=== PATIENT | male | born 1990 | race Caucasian/White ===

== ENCOUNTER 2019-12-28 11:02 | Emergency (ER) | payer OTHER ==
--- NOTE | 2019-12-28 11:40 | ER Document Report ---
ED Medical Screen (RME) - General Chief Complaint: Chest Pain Stated Complaint: CHEST PAIN Time Seen by Provider: 12/28/19 11:36 Notes: Patient presents with a 2-3 history of chest tightness and right shoulder numbness. Patient denies any nausea vomiting or cough at this time. Patient denies any shortness of breath. Patient does report a previous history of gout. Patient reports only discomfort to the chest although denies pain at this time. I have greeted and performed a rapid initial assessment of this patient. A comprehensive ED assessment and evaluation of the patient, analysis of test results and completion of the medical decision making process will be conducted by additional ED providers. - Related Data Allergies/Adverse Reactions: No Known Allergies Allergy (Verified 12/28/19 11:35) Home Medications: fish oil Past Medical History - Social History Frequency of alcohol use: None Drug Abuse: None Physical Exam - Vital signs Vitals: Temp Pulse Resp BP Pulse Ox 98.4 F 53 L 18 143/74 H 99 12/28/19 11:23 12/28/19 11:23 12/28/19 11:23 12/28/19 11:23 12/28/19 11:23 - Cardiovascular Rhythm: Bradycardia Heart sounds: S1 appreciated, S2 appreciated Course - Vital Signs Vital signs: Temp Pulse Resp BP Pulse Ox 98.4 F 53 L 18 143/74 H 99 12/28/19 11:23 12/28/19 11:23 12/28/19 11:23 12/28/19 11:23 12/28/19 11:23
[2019-12-28 12:09] LABS: ABSOLUTE LYMPHOCYTES (AUTO) 2.2 10^3/uL (0.5-4.7); ABSOLUTE MONOCYTES (AUTO) 0.3 10^3/uL (0.1-1.4); ABSOLUTE NEUT (AUTO) 1.7 10^3/uL (1.7-8.2); BASOPHILS % (AUTO) 0.4 % (0-2); EOSINOPHILS % (AUTO) 1.1 % (0-6); HEMATOCRIT 42.7 % (37.9-51.0); HEMOGLOBIN 14.6 g/dL (13.5-17.0); LYMPHOCYTES % (AUTO) 51.6 % (13-45); MEAN CORPUSCULAR HEMOGLOBIN 27.4 pg (27.0-33.4); MEAN CORPUSCULAR HGB CONC 34.2 g/dL (32.0-36.0); MEAN CORPUSCULAR VOLUME 80 fl (80-97); PLATELET COUNT 306 10^3/uL (150-450); RED BLOOD COUNT 5.33 10^6/uL (4.35-5.55); RED CELL DISTRIBUTION WIDTH 12.9 % (11.5-14.0); SEGMENTED NEUTROPHILS % (AUTO) 38.9 % (42-78); TOTAL CELLS COUNTED % (AUTO) 100 %; WHITE BLOOD COUNT 4.3 10^3/uL (4.0-10.5)
--- NOTE | 2019-12-28 12:10 | RADIOLOGY REPORT (SQ) ---
EXAM DESCRIPTION: CHEST 2 VIEWS IMAGES COMPLETED DATE/TIME: 12/28/2019 11:49 am REASON FOR STUDY: cp COMPARISON: None. TECHNIQUE: Frontal and lateral radiographic views of the chest acquired. NUMBER OF VIEWS: Two view. LIMITATIONS: None. FINDINGS: LUNGS AND PLEURA: No pneumothorax. No consolidation or pleural effusion. MEDIASTINUM AND HILAR STRUCTURES: No contour abnormalities. HEART AND VASCULAR STRUCTURES: Heart normal size. BONES: No acute findings. HARDWARE: None in the chest. OTHER: No other significant finding. IMPRESSION: NO ACUTE FINDINGS. TECHNICAL DOCUMENTATION: JOB ID: [id number] [place]-[id number] 2010 [email or web address]- All Rights Reserved Reading location - IP/workstation name: [email or web address]
[2019-12-28 12:36] LABS: ALKALINE PHOSPHATASE 51 U/L (38-126); ANION GAP 11 (5-19); ASPARTATE AMINO TRANSFERASE 26 U/L (17-59); BILIRUBIN,DIRECT 0.2 mg/dL (0.0-0.4); BILIRUBIN,TOTAL 0.9 mg/dL (0.2-1.3); BLOOD UREA NITROGEN 12 mg/dL (7-20); CALCIUM 9.9 mg/dL (8.4-10.2); CARBON DIOXIDE 27 mmol/L (22-30); CHLORIDE 103 mmol/L (98-107); GLUCOSE 103 mg/dL (75-110); POTASSIUM 4.8 mmol/L (3.6-5.0); TOTAL PROTEIN 7.6 g/dL (6.3-8.2)
--- NOTE | 2019-12-28 13:51 | ER Document Report ---
Entered by TONIO MENDEZ SCRIBE 12/28/19 1315 Acting as scribe for:XAVIER LANDEROS MD ED General - General Chief Complaint: Chest Pain Stated Complaint: CHEST PAIN Time Seen by Provider: 12/28/19 11:36 Mode of Arrival: Ambulatory Information source: Patient Notes: This 29 year old male patient presents to the emergency department today with complaints of chest pain described as "tightness and discomfort" for the last few days. Patient reports that when she pain begins it lasts for a few hours then goes away. He has not noticed anything that seems to exacerbate his pain and he noticed that if he lays still and does nothing his chest pain seems to go away. Patient denies shortness of breath, nausea, or fevers. TRAVEL OUTSIDE OF THE [place] IN LAST 30 DAYS: No - Related Data Allergies/Adverse Reactions: No Known Allergies Allergy (Verified 12/28/19 11:35) Home Medications: fish oil Past Medical History - General Information source: Patient - Social History Smoking Status: Former Smoker Cigarette use (# per day): No Frequency of alcohol use: None Drug Abuse: None Family History: Reviewed & Not Pertinent Pulmonary Medical History: Reports: Hx Pneumonia Musculoskeletal Medical History: Reports Hx Gout Past Surgical History: Reports: Hx Oral Surgery - wisdom teeth Review of Systems - Review of Systems Constitutional: denies: Fever EENT: No symptoms reported Cardiovascular: See HPI, Chest pain Respiratory: denies: Short of breath Gastrointestinal: denies: Nausea Genitourinary: No symptoms reported Male Genitourinary: No symptoms reported Musculoskeletal: No symptoms reported Skin: No symptoms reported Hematologic/Lymphatic: No symptoms reported Neurological/Psychological: No symptoms reported -: Yes All other systems reviewed and negative Physical Exam - Vital signs Vitals: Temp Pulse Resp BP Pulse Ox 98.4 F 53 L 18 143/74 H 99 12/28/19 11:23 12/28/19 11:23 12/28/19 11:23 12/28/19 11:23 12/28/19 11:23 - Notes Notes: Physical Exam: General: Alert, appears well. HEENT: Normocephalic. Atraumatic. PERRL. Extraocular movements intact. Oropharynx clear. Neck: Supple. Non-tender. Respiratory: No respiratory distress. Clear and equal breath sounds bilaterally. Right sided mid to upper chest wall tenderness to palpation. Complains of discomfort with deep breathing for lung auscultation. Cardiovascular: Regular rate and rhythm. Abdominal: Obese. Non-tender, no RUQ tenderness to palpation. No distension. Normal Bowel Sounds. Back: No gross abnormalities. Extremities: Moves all four extremities. Upper extremities: Normal inspection. Normal ROM. Lower extremities: Normal inspection. No edema. Normal ROM. Neurological: Normal cognition. AAOx4. Normal speech. Psychological: Normal affect. Normal Mood. Skin: Warm. Dry. Normal color. Course - Re-evaluation Re-evalutation: 12/28/19 15:02 Patient CBC and Chem-12 are unremarkable. Troponin is undetectable. The patient's uric acid is elevated at 9.8. - Vital Signs Vital signs: Temp Pulse Resp BP Pulse Ox 98.4 F 53 L 21 H 132/83 H 100 12/28/19 11:23 12/28/19 11:23 12/28/19 14:01 12/28/19 14:01 12/28/19 14:01 - Laboratory Result Diagrams: 12/28/19 11:53 12/28/19 11:53 Laboratory results interpreted by me: 12/28/19 12/28/19 12/28/19 11:53 11:53 11:53 Lymph % (Auto) 51.6 H Seg Neutrophils % 38.9 L Creatinine 1.30 H Uric Acid 9.8 H Creatine Kinase 12/28/19 11:53 Lymph % (Auto) Seg Neutrophils % Creatinine Uric Acid Creatine Kinase 211 H - Diagnostic Test Radiology reviewed: Image reviewed, Reports reviewed - Chest x-ray does not show acute cardiopulmonary process or other significant findings. - EKG Interpretation by Mo EKG shows normal: Sinus rhythm, [place], Intervals, QRS Complexes, ST-T Waves Rate: Normal - 54 Rhythm: NSR Discharge - Discharge Clinical Impression: Chest wall pain, Hyperuricemia Condition: Stable Disposition: HOME, SELF-CARE Additional Instructions: Chest Wall Pain Your chest pain has been diagnosed as coming from the chest wall. This is often caused by straining the muscles or joints in the chest during physical activity, direct trauma, coughing, or vigorous vomiting. Persons with arthritis are especially prone to this type of pain, due to inflammation of the cartilage joints near the breast bone. Occasionally, no cause can be found. Rest from strenuous physical activity. This kind of chest pain is usually made worse by movement of the chest. Depending on the symptoms, we may prescribe medicine for pain, muscle relaxation, and antiinflammatory effects. If the pain is new, and seems to be due to muscle strain, cold packs can help. Otherwise, apply gentle warmth to the painful area for 15 minutes every hour or two. You should contact the doctor immediately if things change. Further evaluation is needed if you develop a fever or cough, if the nature of the pain changes, or if you become short of breath. Your EKG, chest x-ray, and lab work including cardiac enzymes were all normal except for an elevation in your uric acid, and elevated creatinine. The elevated creatinine shows a slightly impaired kidney function. You should take copies of your lab work to follow-up with your primary care provider to see if your provider feels you should be on medication for this. You should probably avoid taking nonsteroidal anti-inflammatory drugs such as ibuprofen and Aleve for more than a few days at a time. Follow-up with your primary care next week, take copies of lab work with you. RETURN TO THE EMERGENCY ROOM IF ANY NEW OR WORSENING SYMPTOMS. I personally performed the services described in the documentation, reviewed and edited the documentation which was dictated to the scribe in my presence, and it accurately records my words and actions.
[2019-12-28 15:42] VITALS: BP 138/82
--- NOTE | 2019-12-29 00:44 | EKG REPORT ---
SEVERITY:- NORMAL ECG - SINUS BRADYCARDIA : Confirmed by: Susana Trinh MD 29-Dec-2019 00:44:16
== END 2019-12-28 16:01 | disposition home or self-care (01) ==
LOC: ER 11:02
DX: R07.9 Chest pain, unspecified (principal); E79.0 Hyperuricemia without signs of inflammatory arthritis and tophaceous disease
CPT/HCPCS: 36415; 71046; 80053; 82550; 84484; 84550; 85025; 93005; 93010; 99285